=== PATIENT | male | born 2000 | race Caucasian/White ===

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

== ENCOUNTER 2023-06-24 21:10 | Emergency (ER) | payer OTHER ==
[~2023-06-24] VITALS: Ht 177.8 cm; Wt 83.9 kg
[2023-06-24 21:46] VITALS: BP 110/69; PULSE 84; RESP 16; TEMP 98.5; O2SAT 98
[2023-06-24] MEDS ORDERED: KETOROLAC 30 MG/ML VIAL IM ONE (23:20)
[2023-06-24] MEDS ORDERED: CEPH-588 PO (23:54)
[2023-06-24] MEDS ORDERED: BACI-418 TP (23:54)
[2023-06-24] MEDS ORDERED: NAPR-54 PO (23:54)
== END 2023-06-25 00:46 | disposition home or self-care (01) ==
LOC: MED 21:10
DX: S61.211A Laceration without foreign body of left index finger without damage to nail, initial encounter (principal); X58.XXXA Exposure to other specified factors, initial encounter; Y93.89 Activity, other specified; Y92.89 Other specified places as the place of occurrence of the external cause; Y99.8 Other external cause status
CPT/HCPCS: 29130; 73140; 96372; 99283; J1885